=== PATIENT | female | born 1960 | race Caucasian/White ===

== ENCOUNTER → 2016-06-02 | Day surgery (SDC) | payer BC ==
[~2016-06-02] MED LIST: AMLODIPINE-BEN1 EAC1 PO; BACTRIM DS TABL1 TA1 PO; BLACK COHOSH40 M1 PO; DYRENIUM100 MG PO; HYDROCODON-ACE1 EAC9 PO; K-DUR10 MEQ PO; K-DUR20 ME2 PO; KCL PO; KEFLEX PO; LEVOTHROID75 MCG PO; LEVOTHYROXINE75 MC1 PO; LISINOPRIL PO; METOPROLOL SUCC25 MG PO; MOBIC PO; MOBIC15 MG PO; NEXIUM PO; NORVASC PO; OMEPRAZOLE20 M1 PO; PRILOSEC20 M1 PO; SYNTHROID PO; TRAMADOL HCL50 M2 PO; VICODIN PO; VITAL-D RX TABL1 TAB PO
--- NOTE | ~2016-06-02 | OR ---
Unit #: [id number] #: [id number] Patient: MISHA LAU [id number] [address] [address] [id number] O MR#: [id number] NAME: MISHA LAU ROOM: Date of Procedure: 06/02/2016 Admission Date: 06/02/2016 Surgeon: Bruce Rouse M.D. : 1960 Attending Physician: Bruce Rouse M.D. Primary Care Physician: Sofi Whittaker M.D. SURGERY CENTER OPERATIVE NOTE PROCEDURE PERFORMED Lumbar epidural steroid injection under x-ray guided needle placement. PREOPERATIVE DIAGNOSES 1. Acute lumbar radiculitis. 2. Spinal stenosis, lumbosacral spine. 3. Degenerative joint disease, lumbosacral spine. 4. Degenerative disk disease, lumbosacral spine. INDICATIONS FOR PROCEDURE The patient presents today status post 2 previous lumbar approach epidural steroid injections occurring approximately 3 months ago. She states she got good relief. Her relief was not complete nor was clearly long-lasting and though she was comfortable enough to maintain activities of daily living for approximately 8 to 10 weeks. Over the course of past 2 to 4 weeks, her pain has returned right-sided only in severe radicular in nature, which is negatively impacting her ability to conduct activities of daily living. She is also failing to respond to conservative measures. After discussing risks and benefits of proceeding today with a lumbar epidural steroid injection as well as referral to Dr. Raz Singer for consideration for surgical treatment, the patient agreed this would be the appropriate course of action. DESCRIPTION OF PROCEDURE She was then taken to the operating room, where she was prepped and draped in a sterile manner. Standard monitors were applied. She refused all forms of sedation and lumbar epidural space accessed at L4-L5 level using loss of resistance technique and x-ray guidance. Needle placement was confirmed with injection of 2 mL of Omnipaque. There was good superior dye flow at this L4-L5 needle placement. Following successful needle placement confirmation, the patient received an injectate containing 4 mL normal saline and 80 mg of methylprednisolone. She tolerated this procedure well. She was discharged home with followup instructions, which included return to her primary care provider for referral to Dr. Mendez Shultz or Dr. Helio Vargas should she feel that epidurals alone were not adequate for her pain treatment and we discussed that this would require discharge from this service which she was comfortable with this. Dictated by... Konstantin De La Cruz/catracho Unit #: [id number] #: [id number] Patient: MISHA LAU TD: 06/02/2016 23:26 JOB #: [id number] SURGERY CENTER OPERATIVE NOTE Page 1 of 1 X Ryan Rouse MD X PROCEDURE OPERATIVE NOTE
== END | disposition home or self-care (01) ==
LOC: CCSC 08:40
DX: M51.17 Intervertebral disc disorders with radiculopathy, lumbosacral region (principal); M47.27 Other spondylosis with radiculopathy, lumbosacral region; M48.07 Spinal stenosis, lumbosacral region; K21.9 Gastro-esophageal reflux disease without esophagitis
CPT/HCPCS: J2250

== ENCOUNTER → 2016-09-17 | Outpatient (CLI) | payer BC ==
--- NOTE | ~2016-09-17 | CR182 ---
[facility] A Service [facility] RADIOLOGY TEXT RESULTS PATIENT: MISHA LAU LOCATION: [facility] : 56 UNIT #: [id number] AGE: [address]: Parish Small MD SEX: F ORDER DR: [id number] [place] [id number] O MR#: [id number] Acc #: [id number] NAME: MISHA LAU : 1960 SEX: F STUDY DATE/TIME: 09/17/2016 9:30 UNIT: [facility] ROOM: STUDY DESCRIPTION: CR Lumbar Spine Bending Only 2 Attending Physician: Parish Small M.D. Referring Physician: Parish Small M.D. Ordering Physician: Parish Small M.D. Primary Care Physician: Sofi Whittaker M.D. MEDICAL IMAGING REPORT This report is preliminary unless electronic signature is present. EXAM Lumbar spine series. HISTORY Long-term low back pain over the past year. TECHNIQUE Lateral views of the lumbar spine were obtained in flexion and extension to evaluate for instability. FINDINGS Degenerative changes are seen at all lumbar levels. Degenerative disc disease is most severe at L2-3, where there is disc space collapse. It has progressed since 2013. Comparison of flexion and extension views shows no evidence of subluxation. IMPRESSION Multilevel degenerative disc disease worst at L2-3 showing progression since 2013 with no evidence of instability between flexion and extension. Dictated by... Edy Munoz M.D. THIS IS AN ELECTRONICALLY VERIFIED REPORT Edy Munoz M.D. at 09/17/2016 4:41 PM RLF/irwin TD: 09/17/2016 10:44 JOB #: [id number] [facility] A Service [facility] RADIOLOGY TEXT RESULTS PATIENT: MISHA LAU LOCATION: [facility] : 56 UNIT #: [id number] AGE: [address]: Parish Small MD SEX: F ORDER DR: MEDICAL IMAGING REPORT Page 1 of 1
--- NOTE | ~2016-09-17 | MR113 ---
[facility] A Service of [facility] & [facility] RADIOLOGY TEXT RESULTS PATIENT: MISHA LAU LOCATION: [facility] : 56 UNIT #: [id number] AGE: [address]: Parish Small MD SEX: F ORDER DR: [id number] [address] [address] [id number] O MR#: [id number] Acc #: [id number] NAME: MISHA LAU : 1960 SEX: F STUDY DATE/TIME: 09/17/2016 9:46 UNIT: [facility] ROOM: STUDY DESCRIPTION: MR Lumbar Wo Contrast Attending Physician: Parish Small M.D. Referring Physician: Parish Small M.D. Ordering Physician: Parish Small M.D. Primary Care Physician: Sofi Whittaker M.D. MRI CENTER REPORT This report is preliminary unless electronic signature is present. EXAM Lumbar MRI HISTORY Chronic low back pain over the past 10 years radiating to both lower extremities worsening over the past year. TECHNIQUE Multiplanar imaging of the lumbar spine was performed with short and long TR and compared to a previous examination from 11/29/2014. FINDINGS Mid lumbar dextroscoliosis is seen. There are advanced degenerative changes at all lumbar discs. At T12-L1, there is a small right-sided disc protrusion. It slightly effaces the thecal sac without significant canal or foraminal narrowing. It is unchanged from the previous examination. There is mild bilateral facet hypertrophy at this level as well. At L1-2, there is broad-based right-sided disc protrusion at the entrance to the foramen. Central stenosis toward the right side is mild. This is also unchanged from the previous exam. At L2-3, there is degenerative disc disease much more prominent to the left side of the disc than to the right along the inner curvature of the scoliosis. There is a broad-based posterior disc herniation with osteophyte that extends to the right of midline and into the left foramen. There has been significant progression of degenerative change and disc protrusion at this level when compared to the previous examination. The right foramen is mildly narrowed. The left foramen is severely narrowed with loss of fat around the exiting nerve root. Central stenosis is moderately severe. [facility] A Service of [facility] RADIOLOGY TEXT RESULTS PATIENT: MISHA LAU LOCATION: [facility] : 56 UNIT #: [id number] AGE: [address]: Parish Small MD SEX: F ORDER DR: At L3-4, there is broad-based posterior disc bulging and osteophyte formation accompanied by moderate bilateral facet disease. Central stenosis is moderate. Foraminal stenosis is moderate bilaterally. There has been progression of disease at this disc since the previous examination as well. At L4-5, there is disc space narrowing and degenerative change more prominent to the right than to the left. Central stenosis is mild. The left foramen is widely patent. There is complete loss of fat around the right exiting nerve root. This has worsened since the previous examination as well. The L5-S1 disc is unremarkable and the canal and foramina are widely patent. The conus is normal. There is no evidence of marrow edema. No paraspinous masses are seen. There is a parapelvic cyst in the left kidney appearing similar to the previous scan. IMPRESSION Scoliosis with advanced multilevel degenerative disc and facet disease as described above level by level. The most significant central stenosis is at L2-3 new since the previous examination and extending into the left foramen with severe left foraminal narrowing. There is significantly more protruding disc or herniated disc at and just below the level of the L2-3 disc and extending more to the left than to the right. There is also a significant degree of left-sided foraminal stenosis at L3-4. The most significant foraminal stenosis on the right is at L4-5 where there is exiting nerve root compression. There is also moderate foraminal narrowing on the right at the L3-4 level. Dictated by... Edy Munoz M.D. THIS IS AN ELECTRONICALLY VERIFIED REPORT Edy Munoz M.D. at 09/18/2016 4:33 PM ANA M/ana maria TD: 09/18/2016 09:05 JOB #: [id number] MRI CENTER REPORT Page 1 of 1
== END | disposition home or self-care (01) ==
LOC: SMRI 09:22
DX: M54.5 Low back pain (principal); I73.9 Peripheral vascular disease, unspecified; M51.36 Other intervertebral disc degeneration, lumbar region
CPT/HCPCS: 72120; 72148